=== PATIENT | male | born 1940 | race Caucasian/White ===

== ENCOUNTER → 2017-07-10 09:15 | Outpatient (CLI) | payer MEDICARE, SELFPAY ==
[2017-07-10 09:52] LABS: Hematocrit 48.9 % (40-54); Hemoglobin 16.2 g/dl (13.0-16.5); Mean Corp Hgb Conc 33.1 g/gl (32-36); Mean Corpuscular Volume 93.5 fL (80-94); Mean Platelet Vol. 9.6 fl (6.2-12.0); Platelet Count 247 K/mm3 (150-450); RBC Distribution Width CV 13.2 % (11.6-14.6); RBC Distribution Width SD 45.1 fl (35.1-43.9); Red Blood Count 5.23 M/mm3 (4.6-6.2); White Blood Count 4.8 K/mm3 (4.4-11.0)
[2017-07-10 09:54] LABS: Scan Indicated on CBC? Y/N NO
[2017-07-10 10:16] LABS: Anion Gap 9 (5-15); BUN 25 mg/dL (7-18); BUN/Creat Ratio 26.5 RATIO (10-20); Calcium,Total 9.1 mg/dL (8.5-10.1); Chloride 106 mmol/L (98-107); Creatinine, Serum 0.94 mg/dL (0.70-1.30); EST Glomerular Filtration Rate 83 mL/min (>60); Est Glom Filt Rate - Afr Amer 100 mL/min (>60); Glucose 65 mg/dL (74-106); Potassium 4.5 mmol/L (3.5-5.1); Sodium Level 143 mmol/L (136-145)
== END ==
PROVIDERS: Family Provider Family Medicine; PCP Family Medicine; Visit Provider Orthopaedic Surgery
DX: Z01.818 Encounter for other preprocedural examination (principal)
CPT/HCPCS: 36415; 80048; 85027; 93005

== ENCOUNTER 2019-12-02 08:30 | Outpatient (RCR) | payer MEDICARE, SELFPAY ==
--- NOTE | 2019-11-09 08:00 | HP.PTEVAL ---
Patient's Visit Information ROME DYSON is a 79 year old M referred to Physical Therapy by Dr. Aditya Carmichael MD with a diagnosis of cervical DDD, gait imbalance. Date of Evaluation: 11/09/19 Physical Therapist: Aditya Mueller, SRINIT, OCS, CSCS - Visit Plan Frequency: 2x /Week Duration: 4 Weeks Plan: Pt to have neurocom with EG and will need treated with instruction in appropriate balance(likely vest) exercises after that time. Until then, 2x/week for 4 weeks to start for MH and STM to neck focussing R UT, work to stretching pericervical muscles, ROM to neck strength posture adn necka dn progress to HEP.Activitiy modification - Subjective Doc says I have a balance problem due to back and neck. Chronic arthritic neck and back problems. Haad cortisone injections in neck years ago. Neck pain is worse in evenings to 7/10. Not bad in morning. Gets catch in it in am and 3/10, constant. LBP for years in mid back. Not many other treatments, uses OTC meds adn chiropractic which helps. Balance is effectd as he is unsteady. Did not realize he was unsteady until had his physical. No falls. Walks through [place] regularly. No neuropathy. No dizzyness. No cane or walker needed. Activities are normal at home. Spends day mowing, cutting wood, taking care of coes and works garden and takes care of 3 yo great grandosn. Basic ADLs are getting done. No symptoms from [place], went away after 10 years. - Pain neck Pain Intensity (Out of 10): 3 Pain Intensity Range: 3, 7 - Objective Walks hunched over with FW head btu safe and I. Ocuomotor is unremarkable without nystagmus and no problems with gaze pursuit, saccades. VOR walking tolerable and no symptoms or LOB. cervical aROM R rotation 15 adn L 30, SB are nil, ext is dev R and 12 degrees, smoe pain end range all motions. Slight. Tender to touch R UT and into c/s paraspinals. reflex 1/3 patella adn achilles and bi and tri. sensation WNL to gross light touch UE and LE. Strength LE 4+/5 hips , knees and ankles, UE 4/5 L UE and R UE 2 Ext rotation, 4- IR, 3- flexiona nd abduction. AROM ext rotaion -15 from neutral and elevation about 90 vs 125 on L. H/O RC problems adn failed surgery on R but has become functional. coordination to toe taps and heel taps LE WFL. Heel rasies well without UE. Steps reciprocal with one rail. Gastroc and HS moderately tight. - Balance Scores Functional Gait Assessment Score: 25 % Disability: 16.6700 CATSIB Score (Max score 120 seconds): 100 - Goals Goal 1:: 45 degrees B cervical rotation and 25 ext t o limit problems in neck and see behind tractor easier. Goal Time Frame: 4-6 Weeks Goal 2:: Pt neck feel 50% ruy rin evening to 3/10 at worst Goal Time Frame: 4-6 Weeks Goal 3:: I approp balance and neck ex to limit future problems Goal Time Frame: 4-6 Weeks - Rehabilitation Potential Physical Therapy Diagnosis: imbalance and neck OA Rehabilitation Potential: Fair - Anticipated Interventions Patient/Client Instruction: Educate patient on: Condition, Plan of Care For the Purpose of:: To decrease pain, To increase ROM, To improve muscle performance and motor function, To increase tolerance to activity/condition/position, To improve ability of physical actions for home/community/work/leisure Therapeutic Exercise to Include: Strength training, Balance training, Postural training, Flexibilty training, Passive ROM, Active ROM For the Purpose of:: To decrease pain, To increase ROM, To improve nutrient delivery to tissue, To improve muscle performance and motor function, To increase tolerance to activity/condition/position, To improve balance Manual Therapy Techniques to Include: Mobilization, Passive ROM, Soft tissue mobilization For the Purpose of:: To decrease pain, To increase ROM Thermo therapy (hot pack): Yes For the Purpose of:: To decrease pain, To increase ROM, To improve muscle performance and motor function, To increase tolerance to activity/condition/position Thank you for the opportunity to evaluate your patient. For Medicare and Medicare HMO plans, please review the plan of care and approve it. It will need to be FAXED BACK to us at [phone] for Medicare purposes. For Medicare only, by signing this I certify the plan of care. Please let me know if there are questions or concerns regarding this plan of care. Physician Signature: Date:
--- NOTE | 2019-11-16 09:43 | HP.PTCOM ---
PT Communication Note 11/16/[address] Aditya Carmichael MD , [facility] I have enclosed a copy of the results for your review. In summation, he scored low on the vestibular portion of the Sensory Organization Test. He scored poorly on forward weight shifting. With these results in mind, I plan to continue his original plan of care adding balance ex to address these deficits. if there are questions regarding his PT, please feel free to call me. Sincerely, Aditya Mueller DPT, OCS, CSCS Contact Information
--- NOTE | 2019-12-02 09:51 | HP.PTDCSUM ---
It has been my pleasure to treat ROME DYSON referred by Dr. Aditya Carmichael MD, with the diagnosis of cervical DDD, gait imbalance for a total of 8 visit(s). Discharge Date: 12/02/19 Please see the following information for a summary of their discharge status. Subjective: Getting better. Not s fatigued in evening. standing up straighter adn neck doesn't hurt as much. R neck hurts 4/10 much of day. No falls. Has been walking in [place]. Doing exercises for neck at home all day long. Wants to continue via HEP vs more therapy. Can put tractor in reverse adn look behind him now. neck Pain Intensity (Out of 10): 4 thoracic region Pain Intensity (Out of 10): 3 % Improvement: 70 Objective/Function: L 40 rotation adn 38 R ,rotation, a little pain. 25 extension. FGA is +1. Going the right way with his progress. wants to cotninue at home adn should be able to at this point. Goal 1:: 45 degrees B cervical rotation and 25 ext t o limit problems in neck and see behind tractor easier. Goal Progress: Progressing Goal 2:: Pt neck feel 50% ruy rin evening to 3/10 at worst Goal Progress: Progressing Goal 3:: I approp balance and neck ex to limit future problems Goal Progress: neck Plan: d/c to HEP If there are questions or concerns regarding this patient's physical therapy, please feel free to call me at [phone]. Thank you for the referral of this patient. Sincerely, Aditya Mueller, DPT, OCS, CSCS
== END 2019-12-02 19:00 | disposition home or self-care (01) ==
LOC: PT 08:30
PROVIDERS: PCP Family Medicine; Referring Provider Family Medicine; Visit Provider Family Medicine
DX: M50.30 Other cervical disc degeneration, unspecified cervical region (principal); H81.09 Meniere's disease, unspecified ear; R29.3 Abnormal posture; R26.89 Other abnormalities of gait and mobility
CPT/HCPCS: 97110; 97140; 97163; 97164; 97750

== ENCOUNTER → 2020-03-31 15:02 | Outpatient (CLI) | payer MEDICARE, SELFPAY ==
[2016-11-09 16:23] VITALS: BMI 22.4
[2020-03-31 16:55] LABS: Pathologist Comment/Body Fluid May follow
[2020-03-31 19:29] LABS: Appearance/Body Fluid CLOUDY; Auto B Fluid Analyzer BKGD Ct COUNTS W/IN LIMITS (W/IN LIMITS); Color/Body Fluid YELLOW; Source- Body Fluid OTHER
[2020-03-31 19:30] LABS: Red Cell Count/Body Fluid 0.008 10^6/ul
[2020-03-31 19:32] LABS: Body Fluid Mononuclear WBC # 2.034 10^3/uL
[2020-03-31 21:08] LABS: CRYSTALS, BODY FLUID See PATH REV; Lymphocytes 1 %; Monocytes 1 %; Neutrophil (Segs) 98 %; Source- Body Fluid SYNOVIAL
[2020-03-31 21:09] LABS: Body Fluid QC Type(s) BF1Q,BF2Q
[2020-04-01 12:27] LABS: Pathologist Review Reviewed
== END ==
PROVIDERS: PCP Family Medicine; Visit Provider Physician Assistant Surgical
DX: M70.41 Prepatellar bursitis, right knee (principal)
CPT/HCPCS: 87070; 87075; 87077; 87186; 87205; 89050; 89060

== ENCOUNTER 2020-05-31 12:36 | Outpatient (RCR) | payer MEDICARE, SELFPAY ==
[2016-11-09 16:23] VITALS: BMI 22.4
[2020-05-31] MEDS: COVID-19 VACC, MRNA(PFIZER)/PF 30 MCG/0.3 ML SYRINGE IM (17:34)
[2020-06-21] MEDS: COVID-19 VACC, MRNA(PFIZER)/PF 30 MCG/0.3 ML SYRINGE IM (17:13)
== END 2020-08-30 23:59 ==
LOC: IMMUN 12:36
PROVIDERS: PCP Family Medicine; Visit Provider Family Medicine
DX: Z23 Encounter for immunization (principal)
CPT/HCPCS: 0001A; 0002A; 91300

== ENCOUNTER 2021-12-22 11:39 | Emergency (ER) | payer MEDICARE, SELFPAY ==
[2021-12-22] VITALS (10 sets, daily range): BP systolic 98–140; BP diastolic 56–83; PULSE 61–106; RESP 15–19; TEMP 35.6–37.1; O2SAT 97–100; BMI 23.9
--- NOTE | 2021-12-22 11:51 | EKG12_ITS ---
Test Reason : Blood Pressure : / mmHG Vent. Rate : 049 BPM Atrial Rate : 249 BPM P-R Int : 000 ms QRS Dur : 094 ms QT Int : 442 ms P-R-T Axes : 266 -58 009 degrees QTc Int : 399 ms Atrial flutter with variable A-V block Pulmonary disease pattern Left anterior fascicular block Abnormal ECG Confirmed by ED BAPTISTE, TON ([id number]), writer editor ROBIN HARP ([id number]) on 12/25/2021 10:16:15 AM Referred By: MELISA Confirmed By:TON WARD MD
--- NOTE | 2021-12-22 13:16 | CT_ITS ---
STUDY: CT BRAIN WITHOUT CONTRAST REASON FOR EXAM: Male, 81 years old. Syncope RADIATION DOSAGE (If Supplied By Facility): CTDIvol = ( 44.99 ) mGy, DLP = ( 931.09 ) mGycm TECHNIQUE: Transaxial CT imaging of the brain was performed without administration of intravenous contrast material. Individualized dose optimization techniques were used for this CT. COMPARISON: No relevant priors. FINDINGS: Normal soft tissue structures. Normal calvarium. There is mild cerebral atrophy with widening of the extra-axial spaces and ventricular dilatation. There are areas of decreased attenuation within the white matter tracts of the supratentorial brain, consistent with microvascular disease changes. Normal basal ganglia and thalami. Normal brainstem. Normal cerebellum. There is no intracranial hemorrhage. There are no findings of an acute ischemic infarction. Atherosclerotic calcification of the cavernous portions of the internal carotid arteries bilaterally. Mucosal thickening and partial opacification of the ethmoid sinuses. Mucosal thickening of the frontal sinuses. CT/Brain/Head without Contrast IMPRESSION: Chronic involutional changes of the brain. Mucosal thickening and partial opacification of the ethmoid sinuses and mucosal thickening of the frontal sinuses. Electronically Signed: Juan Carlos Hooper MD at 13:52 EDT ,
--- NOTE | 2021-12-22 13:17 | EKG12_ITS ---
Test Reason : REPEAT Blood Pressure : / mmHG Vent. Rate : 065 BPM Atrial Rate : 258 BPM P-R Int : 000 ms QRS Dur : 104 ms QT Int : 436 ms P-R-T Axes : 080 -47 058 degrees QTc Int : 453 ms Atrial flutter with variable A-V block Left anterior fascicular block Abnormal ECG Confirmed by ED BAPTISTE, TON ([id number]), photograph editor ROBIN HARP ([id number]) on 12/25/2021 10:14:18 AM Referred By: DIVINA Confirmed By:TON WARD MD
--- NOTE | 2021-12-22 13:17 | RAD_ITS ---
STUDY: X-RAY CHEST REASON FOR EXAM: Male, 81 years old. Syncope . Weakness and dizziness. Diaphoresis. TECHNIQUE: PA and lateral views of the chest. COMPARISON: None. FINDINGS: EKG electrodes are seen. Hyperinflation. The lungs are clear. There is no demonstrated pleural abnormality. Normal size heart. Normal mediastinum and gary. Normal visualized pulmonary arteries. Normal visualized aortic arch and descending thoracic aorta. There are diffuse degenerative changes of the visualized thoracic spine. Normal visualized ribs, clavicles, and shoulders. There is no demonstrated abnormality of the visualized soft tissue structures of the upper abdomen. RAD/Chest PA and Lateral IMPRESSION: Hyperinflation. The lungs are clear. Electronically Signed: Juan Carlos Hooper MD at 14:01 EDT ,
[2021-12-22 13:31] LABS: Absolute Lymphocyte Count 3.06 X10^3/uL (0.83-4.51); Absolute Neutrophil Count 4.1 X10^3/uL (2.0-7.7); Basophil# 0.03 X10^3/uL; Basophil% 0.4 % (0-1); Eosinophil# 0.62 X10^3/uL; Eosinophils% 7.2 % (0-5); Hematocrit 48.6 % (40-54); Hemoglobin 16.2 g/dL (13.0-16.5); Lymphocyte # 3.06 X10^3/ul (0.83-4.51); Lymphocyte % 35.7 % (19-41); Mean Corp Hgb Conc 33.3 g/dL (32-36); Mean Corpuscular Hgb 32.3 pg (27.0-32.0); Mean Platelet Vol. 10.1 fl (6.2-12.0); Monocyte# 0.76 X10^3/uL; Monocyte% 8.9 % (0-10); NRBC Flagged by Analyzer 0 % (0-5); Neutrophil # 4.06 X10^3/uL (2.7-7.7); Neutrophil % 47.3 % (47-70); Platelet Count 261 K/mm3 (150-450); RBC Distribution Width CV 12.4 % (11.6-14.6); RBC Distribution Width SD 44.4 fl (35.1-43.9); Red Blood Count 5.01 M/mm3 (4.6-6.2); White Blood Count 8.6 K/mm3 (4.4-11.0)
[2021-12-22 13:45] LABS: ALB/GLOB Ratio 1.1 RATIO (0.9-2.4); AST(SGOT) 23 U/L (15-37); Alanine Aminotransfer ALT/SGPT 30 U/L (16-61); Albumin, Serum 3.9 g/dL (3.2-5.0); Alkaline Phosphatase 89 U/L (45-117); Anion Gap 9 (5-15); BUN 22 mg/dL (7-18); BUN/Creat Ratio 22.3 RATIO (10-20); Calcium,Total 9.2 mg/dL (8.5-10.1); Chloride 104 mmol/L (98-107); Creatinine, Serum 0.98 mg/dL (0.70-1.30); EST Glomerular Filtration Rate 78 mL/min (>60); Est Glom Filt Rate - Afr Amer 94 mL/min (>60); Estimated Creatinine Clearance 73.05 ml/min; Globulin 3.7 g/dL (2.2-4.2); Glucose 84 mg/dL (74-106); Potassium 3.5 mmol/L (3.5-5.1); Protein, Total 7.6 g/dL (6.4-8.2); Sodium Level 141 mmol/L (136-145); Troponin-I HS (w/2H Reflex) 7 pg/mL (3.0-78.0)
[2021-12-22 13:53] LABS: Prothrombin Time (Protime)PT. 13.1 SECONDS (11.7-14.9)
[2021-12-22 13:54] LABS: Partial Thromboplast Time 26.1 Seconds (24.1-36.2)
[2021-12-22 15:22] LABS: Reflex Troponin-HS? (from REC) Y
[2021-12-22 16:04] LABS: Troponin-I HS 6 pg/mL (3.0-78.0)
--- NOTE | 2021-12-22 16:34 | EX.ED.DYSGE1 ---
HPI History of Present Illness Chief Complaint: Syncope Onset/Context/Timing Onset: Today Context: Sudden Onset Timing: Intermittent and Lasts (5 minutes) Quality: Dizziness Location: Generalized Worsened by: Nothing Relieved by: Nothing Narrative Narrative: Patient presents with a syncopal episode that occurred today. Patient states he was at a store with his family when he started to feel dizzy. Patient states he started to walk out of the store to go get in the car. Patient states he passed out prior to this happening. Patient states that it was a brief loss of consciousness. Patient states that afterwards he was a little dizzy and confused. Patient states this lasted approximately 5 minutes total. Patient states nothing makes it better nothing makes it worse. Patient states he did get nauseated at the time. Patient states he did get diaphoretic at the time. Patient denies any fevers or chills. [facility] Medical History (Updated 12/22/21 @ 17:[address] Aditya Mcdaniels DO) M?ni?re's disease Medical History no medical history Home Medications epinephrine 0.3 mg/0.3 mL injection, auto-injector 0.3 mg (0.3 mL) IM X1 ##2 11/09/16 [Rx Last Taken Unknown] multivitamin 1 tab PO DAILY 12/22/21 [History Last Taken Unknown] vitamin A-vitamin C-vit E-min tablet 1 tab PO DAILY 12/22/21 [History Last Taken Unknown] Allergy/AdvReac Type Severity Reaction Status Date / Time gabapentin Allergy SORES IN Verified 12/22/21 11:56 MY MOUTH Surgical History (Updated 12/22/21 @ 16:[address] Aditya Mcdaniels DO) Hx of shoulder replacement Social History Smoking Status: Never smoker ROS ROS ED Constitutional Constitutional ED: Reports sweats; Denies chills or fever(s) Eyes Eyes: Denies blurry vision or change in vision ENT ENT ED: Denies rhinorrhea or sore throat Cardiovascular Cardiovascular: Denies chest pain or palpitations Respiratory/Chest Respiratory/Chest: Denies cough or dyspnea Gastrointestinal Gastrointestinal: Reports nausea; Denies vomiting Genitourinary Genitourinary ED: Denies dysuria or hematuria Musculoskeletal Musculoskeletal: Reports back pain and neck pain Integumentary Denies abscess or rash Neurologic Neurologic: Denies headache(s) or weakness Allergic/Immunologic Allergic/Immunologic ED: Denies mouth swelling or urticaria EXAM Physical Exam Const Vital Signs: 12/22/21 11:41 12/22/21 11:49 12/22/21 11:56 Temperature 96.0 F L 96.0 F L Temperature Source Oral Oral Pulse Rate 62 62 Pulse Rate [Lying] Pulse Rate [Sitting (for 1 minute prior to obtaining)] Pulse Rate [Standing (for 1 minute prior to obtaining)] Respiratory Rate 17 17 Respiratory Effort Normal Non-Labored Respiratory Pattern Normal Blood Pressure 118/73 118/73 Blood Pressure [Lying] Blood Pressure [Sitting (for 1 minute prior to obtaining)] Blood Pressure [Standing (for 1 minute prior to obtaining)] Blood Pressure Mean 88 88 Blood Pressure Mean [Lying] Blood Pressure Mean [Sitting (for 1 minute prior to obtaining)] Blood Pressure Mean [Standing (for 1 minute prior to obtaining)] Pulse Ox 100 100 Oxygen Delivery Method Room Air Room Air 12/22/21 12:04 12/22/21 13:30 12/22/21 14:00 Temperature 97.6 F L 97.8 F Temperature Source Oral Temporal Pulse Rate 61 72 74 Pulse Rate [Lying] Pulse Rate [Sitting (for 1 minute prior to obtaining)] Pulse Rate [Standing (for 1 minute prior to obtaining)] Respiratory Rate 19 H 18 15 Respiratory Effort Respiratory Pattern Blood Pressure 126/72 H 127/79 H 122/82 H Blood Pressure [Lying] Blood Pressure [Sitting (for 1 minute prior to obtaining)] Blood Pressure [Standing (for 1 minute prior to obtaining)] Blood Pressure Mean 90 95 95 Blood Pressure Mean [Lying] Blood Pressure Mean [Sitting (for 1 minute prior to obtaining)] Blood Pressure Mean [Standing (for 1 minute prior to obtaining)] Pulse Ox 100 97 100 Oxygen Delivery Method Room Air Room Air Room Air 12/22/21 15:29 12/22/21 15:38 Temperature 97.8 F Temperature Source Temporal Pulse Rate 79 Pulse Rate [Lying] 81 Pulse Rate [Sitting (for 1 minute prior to obtaining)] 81 Pulse Rate [Standing (for 1 minute prior to obtaining)] 106 H Respiratory Rate 17 Respiratory Effort Respiratory Pattern Blood Pressure 98/61 Blood Pressure [Lying] 115/61 Blood Pressure [Sitting (for 1 minute prior to obtaining)] 105/56 L Blood Pressure [Standing (for 1 minute prior to obtaining)] 105/74 Blood Pressure Mean 73 Blood Pressure Mean [Lying] 79 Blood Pressure Mean [Sitting (for 1 minute prior to obtaining)] 72 Blood Pressure Mean [Standing (for 1 minute prior to obtaining)] 84 Pulse Ox 98 Oxygen Delivery Method Room Air Positive well nourished and well developed General Appearance ED: well developed HEENT Reports moist mucous membranes Neck supple and no JVD Resp normal respiratory effort and clear to auscultation bilaterally Cardio regular rate, regular rhythm and no murmurs GI normal to inspection, nondistended, normoactive bowel sounds and non-tender Palpation: soft Extremity normal to inspection General Extremety ED: Negative for edema or tenderness General Extremity: Negative for edema Neuro oriented x3, CN's II-XII intact bilaterally and no sensory deficits noted Sensorium / Orientation: alert Motor Exam: strength 5/5 throughout Psych mental status grossly normal Skin no rashes or lesions noted MDM MDM MDM Narrative Medical decision making narrative: Patient was given IV fluids. Orthostatic vital signs were obtained. Patient's heart rate did increase with standing. EKG was obtained. On my interpretation, it shows atrial flutter with a rate of 49. QRS interval and QTc intervals are within normal limits. There is left axis deviation at -58. Compared to previous EKG, the atrial flutter is not new. CBC was within normal limits. Comprehensive metabolic profile was within normal limits. With INR and PTT were within normal limits. Initial high-sensitivity troponin was normal. 2-hour repeat high-sensitivity troponin was normal. CT scan of the brain was obtained. There is no acute intracranial abnormality. There is mucosal thickening of the ethmoid and frontal sinuses. This was interpreted by the radiologist and reviewed by myself. PA and lateral chest x-ray was obtained. There are 2 views. On my interpretation, lung hardin are clear. There is normal cardiac silhouette. Bony thorax is normal. There is no acute process noted. Radiologist also interpreted the x-ray and agrees. Patient is feeling better on reevaluation. Patient was advised of his findings. Patient was instructed to follow-up with his primary care physician in 5 to 7 days. Patient understood and was agreeable with the plan. All questions were answered. Lab Data Attestation: I reviewed the patient's lab results. Labs: Laboratory Results - last 24 hr 12/22/21 12/22/21 12/22/21 11:20 11:20 11:20 WBC 8.6 RBC 5.01 Hgb 16.2 Hct 48.6 MCV 97.0 H MCH 32.3 H MCHC 33.3 RDW Std Deviation 44.4 H RDW Coeff of Brigitte 12.4 Plt Count 261 MPV 10.1 Immature Gran % (Auto) 0.500 Neut % (Auto) 47.3 Lymph % (Auto) 35.7 Simpson % (Auto) 8.9 Eos % (Auto) 7.2 H Baso % (Auto) 0.4 Absolute Neuts (auto) 4.1 Absolute Lymphs (auto) 3.06 Nucleated RBC % 0 PT 13.1 INR 1.0 APTT 26.1 Sodium 141 Potassium 3.5 Chloride 104 Carbon Dioxide 28.0 Anion Gap 9 BUN 22 H Creatinine 0.98 Estim Creat Clear Calc 73.05 Est GFR (MDRD) Af Amer 94 Est GFR (MDRD) Non-Af 78 BUN/Creatinine Ratio 22.3 H Glucose 84 Calcium 9.2 Total Bilirubin 1.30 H AST 23 ALT 30 Alkaline Phosphatase 89 Troponin I High Sens 7 Total Protein 7.6 Albumin 3.9 Globulin 3.7 Albumin/Globulin Ratio 1.1 12/22/21 15:34 WBC RBC Hgb Hct MCV MCH MCHC RDW Std Deviation RDW Coeff of Brigitte Plt Count MPV Immature Gran % (Auto) Neut % (Auto) Lymph % (Auto) Simpson % (Auto) Eos % (Auto) Baso % (Auto) Absolute Neuts (auto) Absolute Lymphs (auto) Nucleated RBC % PT INR APTT Sodium Potassium Chloride Carbon Dioxide Anion Gap BUN Creatinine Estim Creat Clear Calc Est GFR (MDRD) Af Amer Est GFR (MDRD) Non-Af BUN/Creatinine Ratio Glucose Calcium Total Bilirubin AST ALT Alkaline Phosphatase Troponin I High Sens 6 Total Protein Albumin Globulin Albumin/Globulin Ratio Radiography Chest X-Ray - ED: 2 View, Read by ED Physician, Read by Radiologist and No Acute Disease Diagnostic Testing: Clinical Impression(s) from Imaging Studies Brain CT 12/22/21 13:16 IMPRESSION: Chronic involutional changes of the brain. Mucosal thickening and partial opacification of the ethmoid sinuses and mucosal thickening of the frontal sinuses. Electronically Signed: Juan Carlos Hooper MD at 13:52 EDT , Chest X-Ray 12/22/21 13:17 IMPRESSION: Hyperinflation. The lungs are clear. Electronically Signed: Juan Carlos Hooper MD at 14:01 EDT , EKG Initial EKG: Attestation: I personally reviewed and interpreted this EKG as follows: Interpretation: Atrial Flutter (49) and LAFB Prior EKG tracings: available for review Prior: Unchanged (07/10/2017) Discharge Plan Triage Chief Complaint: Syncope Other Complaint: Palpitations ED Provider: Aditya Mcdaniels Dx/Rx/DC Orders Clinical Impression: Syncope and collapse, Atrial flutter Instructions: ED Fainting, Uncertain Cause Prescriptions: No Action epinephrine 0.3 MG syringe 0.3 mg IM X1 Qty: 2 0RF multivitamin Tablet 1 tab PO DAILY Ocuvite Tablet 1 tab PO DAILY Primary Care Provider: Aditya Carmichael Referrals: Aditya Carmichael MD [Primary Care Provider] - 5-7 Days Disposition Disposition: Home, Self Care
--- NOTE | 2021-12-22 17:32 | ED.RN ---
THIS RN WENT TO DC PT. PT WAS NOTED TO STILL BE IN AFIB ON MONITOR. THIS RN CONFIRMED WITH PT THAT AFIB/AFLUTTER WAS A NEW DX. PT STATED YES. THIS RN EDUCATED PT ON FOLLOWING UP WITH CARDIOLOGY A NEW PATIENT AND IF SYMPTOMS PERSIST OR INCREASING SYNCOPAL EPISODES THEN TO RETURN TO ED. PT STATES THAT ORIGINAL ED PHYSICIAN DID NOT MENTION AFIB/FLUTTER OR AV BLOCK DX TO PT OR PT FAMILY AND TO JUST FOLLOW UP WITH YOUR FAMILY THIS NURSE REQUESTED THAT AN ATTENDING PHYSICIAN EDUCATE PT AND PT FAMILY ON NEW DX.
--- NOTE | 2021-12-22 18:31 | PN.HOSP_ITS ---
Subjective Subjective 81-year-old male with no significant past medical history presented to the hospital with an episode of syncope. Work-up in the ER was unremarkable however he was found to have slow a flutter. There was concern that this was new however upon chart review it looks like he had slow a flutter back in 2018. He was unaware of this had and had never seen a doctor or windows consultant for this. Given his age being 81 he did meet criteria for anticoagulation. He denies any chest pain or lightheadedness, and states that he feels fine now. Of note he did have a 10 point drop in his systolic blood pressure between laying and standing and he had a 25 point increase in his heart rate with the orthostatic vital signs. His does endorse the fact that he is likely dehydrated as he does not drink water very well and especially today he did not have good hydration. Objective Data Objective Data Vital Signs: Vital Signs Temp Pulse Resp BP Pulse Ox O2 Del Method 97.9 F 76 19 H 140/83 H 100 Room Air 12/22/21 17:00 12/22/21 17:00 12/22/21 17:00 12/22/21 17:00 12/22/21 17:00 12/22/21 17:00 Oxygen Delivery Method Room Air Weight: 191 lb 5.78 oz Body Mass Index (BMI) 23.9 Lab / Micro Data Result Diagrams: 12/22/21 11:20 12/22/21 11:20 Labs: Laboratory Results - last 24 hr 12/22/21 11:20: WBC 8.6, RBC 5.01, Hgb 16.2, Hct 48.6, MCV 97.0 H, MCH 32.3 H, MCHC 33.3, RDW Std Deviation 44.4 H, RDW Coeff of Brigitte 12.4, Plt Count 261, MPV 10.1, Immature Gran % (Auto) 0.500, Neut % (Auto) 47.3, Lymph % (Auto) 35.7, Sampson % (Auto) 8.9, Eos % (Auto) 7.2 H, Baso % (Auto) 0.4, Absolute Neuts (auto) 4.1, Absolute Lymphs (auto) 3.06, Nucleated RBC % 0 12/22/21 11:20: PT 13.1, INR 1.0, APTT 26.1 12/22/21 11:20: Sodium 141, Potassium 3.5, Chloride 104, Carbon Dioxide 28.0, Anion Gap 9, BUN 22 H, Creatinine 0.98, Estim Creat Clear Calc 73.05, Est GFR (MDRD) Af Amer 94, Est GFR (MDRD) Non-Af 78, BUN/Creatinine Ratio 22.3 H, Glucose 84, Calcium 9.2, Total Bilirubin 1.30 H, AST 23, ALT 30, Alkaline Ph osphatase 89, Troponin I High Sens 7, Total Protein 7.6, Albumin 3.9, Globulin 3.7, Albumin/Globulin Ratio 1.1 12/22/21 15:34: Troponin I High Sens 6 Radiography Diagnostic Testing: Radiology Impression Brain CT 12/22/21 13:16 IMPRESSION: Chronic involutional changes of the brain. Mucosal thickening and partial opacification of the ethmoid sinuses and mucosal thickening of the frontal sinuses. Electronically Signed: Juan Carlos Hooper MD at 13:52 EDT , Chest X-Ray 12/22/21 13:17 IMPRESSION: Hyperinflation. The lungs are clear. Electronically Signed: Juan Carlos Hooper MD at 14:01 EDT , Physical Exam Narrative General: Alert, Oriented x3, Cooperative, No apparent distress HEENT: Atraumatic, PERRLA, EOMI, Normocephalic Oral: Moist Mucosa Neck: Supple, No JVD Lungs: Clear to auscultation, Normal air movement, No rhonchi, No wheeze, No rales Cardiovascular: Regular rate, Regular Rhythm, Normal S1, Normal S2, No murmurs Abdomen: Soft, Non Tender, Non-Distended, No Hepato-splenomegaly Extremities: No edema, Capillary Refill Less than 3 Seconds Skin: No rashes, No breakdown Musculoskeletal: No Tenderness to Palpation of Joints or Extremities Neurological: Cranial nerves II-XII grossly intact, Motor Exam 5/5 strength throughout, Sensory exam intact to light touch and pain Psych/Mental Status: Normal Affect, Appropriate Assessment & Plan Assessment/Plan (1) Atrial flutter: (2) Syncope and collapse: PLAN: Plan 1. A flutter with syncope ? His a flutter is not new and it does not appear to have changed, he does have a slow conduction with a left anterior fascicular block ? He is not amenable to any direct intervention as he is already rate controlled ? I do recommend anticoagulation given his age ? Would also recommend an outpatient Holter monitor and then follow-up with cardiology on an outpatient basis ? I did discuss this with him and his family members who are at bedside, we discussed the risk and benefits of staying versus being discharged home, and he would prefer to go home today. Charges/Coding Visit Charges Office Visits / Consults: 65612 ED Visit; Low/Mod Severity
== END 2021-12-22 19:25 | disposition home or self-care (01) ==
PROVIDERS: Emergency Provider Emergency Medicine; PCP Family Medicine; Visit Provider Emergency Medicine
DX: I48.92 Unspecified atrial flutter (principal); R55 Syncope and collapse
CPT/HCPCS: 70450; 71046; 80053; 84484; 85025; 85610; 85730; 93005; 99285; J7040; A4216

== ENCOUNTER → 2022-01-04 | Outpatient (CLI) | payer MEDICARE, SELFPAY ==
--- NOTE | 2022-01-04 09:01 | ECHOD_ITS ---
Reason For Study: Afib/Flutter Procedure This was a 2D Doppler, Color Flow transthoracic echocardiogram. Exam performed in department. Left Ventricle Normal LV size. Left ventricular systolic function is normal. The estimated ejection fraction is 53 %. No regional wall motion abnormalities noted. Right Ventricle Normal RV size. Normal systolic function. Atria Normal left atrium. Normal right atrium. Mitral Valve Normal mitral valve. Mild (1+) eccentric mitral valve insufficiency. Tricuspid Valve Normal tricuspid valve. Mild tricuspid valve insufficiency. Pulmonary artery systolic pressure is 20 mmHg. Aortic Valve Trisinus/trileaflet aortic valve. Mild diffuse aortic valve thickening. Pulmonic Valve Normal pulmonic valve. Great Vessels Mildly dilated aortic root. The pulmonary artery is normal size. Normal inferior vena cava. Pericardium/Pleural No pericardial effusion. MMode/2D Measurements & Calculations LVIDd: 4.7 cm IVSd: 1.2 cm Ao root diam: 4.1 cm LVIDs: 3.0 cm LVPWd: 0.92 cm LA dimension: 4.3 cm RVDd: 3.5 cm FS: 35.2 % LAV(MOD-bp): 49.2 ml Aortic Valve Planimetry: 2.1 cm2 LA A4 area: 19.8 cm2 LAV(MOD-bp) Indexed: 23.4 ml/m2 LAV(MOD-sp2): 44.1 ml LAV(MOD-sp4): 52.2 ml RA A4 area: 20.6 cm2 Doppler Measurements & Calculations MV E max marissa: 81.2 cm/sec LV V1 max: 62.5 cm/sec PA V2 max: 77.1 cm/sec LV V1 max P.6 mmHg PA V2 mean: 52.8 cm/sec TR max marissa: 199.2 cm/sec TR max P.0 mmHg ECHO/Echo Complete Interpretation Summary Normal LV size. Left ventricular systolic function is normal. The estimated ejection fraction is 53 %. Mildly dilated aortic root. Structurally normal valves. Ordering Physician: Eladio Hcikman Referring Physician: Aditya Carmichael Performed By: Paul Camara RCS
== END | disposition home or self-care (01) ==
LOC: CVS 08:59
PROVIDERS: PCP Family Medicine; Referring Provider Internal Medicine Cardiovascular Disease; Visit Provider Internal Medicine Cardiovascular Disease
DX: R55 Syncope and collapse (principal); I48.92 Unspecified atrial flutter
CPT/HCPCS: 93225; 93226; 93306

== ENCOUNTER → 2022-04-20 | Outpatient (CLI) | payer MEDICARE, SELFPAY ==
--- NOTE | 2022-04-20 18:49 | STRESSREP_ITS ---
Stress Test Report Pharmacologic myocardial perfusion stress test. 81-year-old man with a history of chest pain and atrial fibrillation. Resting EKG demonstrates atrial flutter with a variable response rate of 91 bpm. Resting blood pressure is 120/80 mmHg. 0.4 mg of regadenoson was infused per usual protocol followed by rapid intravenous saline flush injection. Continuous EKG monitoring was performed. The maximum heart rate was 115 bpm which was 81% of max impacted heart rate the maximum workload was 1 metabolic equivalent. At rest there were no ST or T wave changes noted to suggest ischemia and at peak infusion nonspecific ST changes were noted which did not meet the criteria for ischemia. No clinical angina is noted. The final blood pressure was 118/70 mmHg. Myocardial perfusion protocol. 12.0 mCi of technetium 99m sestamibi was injected at rest. 0.4 mg of regadenoson was infused per usual protocol. At peak infusion 39.3 mCi of techn etium 99m sestamibi was injected stress images were obtained stress and rest images were reconstructed and compared in the short axis vertical long and horizontal long axis. Gated images were also obtained. Perfusion SPECT analysis: Review of the stress images demonstrate normal uptake of tracer noted in all areas of the myocardium. The resting images similar demonstrated normal uptake of tracer noted in all areas of the myocardium. No areas of reversibility are noted to suggest ischemia and no previous infarct is noted. Gated SPECT analysis: The gated ejection fraction is 54%. Conclusion: Normal pharmacologic myocardial perfusion stress test. Preserved ejection fraction.
== END | disposition home or self-care (01) ==
LOC: CVS 06:58
PROVIDERS: PCP Family Medicine; Visit Provider Internal Medicine Cardiovascular Disease
DX: R07.9 Chest pain, unspecified (principal)
CPT/HCPCS: 78452; 93017; A9500; A4216; J2785

== ENCOUNTER → 2023-01-01 | Outpatient (CLI) | payer MEDICARE, SELFPAY ==
--- NOTE | 2023-01-01 13:34 | RAD_ITS ---
STUDY: X-RAY - LEFT HAND REASON FOR EXAM: Male, 82 years old. Pain. TECHNIQUE: 3 views of the left hand. COMPARISON: None. FINDINGS: There is radiocarpal arthrosis with joint space narrowing. Normal distal radioulnar joint. Normal visualized carpal bones. Normal carpal articulations. Normal carpometacarpal articulation of the thumb. Normal second through fifth carpometacarpal joints. Normal metacarpi. Normal proximal and distal phalanges of the thumb. There is mild degenerative arthrosis of the first MCP joint as well as second through fifth PIP and DIP joints. There is moderate degenerative arthrosis of the interphalangeal joint of the thumb. Normal metacarpophalangeal joints of the second through fifth fingers. Normal phalanges of the second through fifth fingers. There is no demonstrated acute fracture. The soft tissue structures are unremarkable. RAD/Hand Min 3 Views IMPRESSION: Degenerative arthrosis, as detailed above. No demonstrated acute fracture. Electronically Signed: Gino Carcamo MD at 13:50 EDT ,
--- NOTE | 2023-01-01 13:35 | RAD_ITS ---
STUDY: X-RAY - LEFT WRIST REASON FOR EXAM: Male, 82 years old. Pain. TECHNIQUE: 3 views of the left wrist were obtained. COMPARISON: None. FINDINGS: Normal visualized distal radius and ulna. There is radiocarpal arthrosis with joint space narrowing. Normal distal radioulnar articulation. Intact carpal bones. Normal carpal articulations. Normal carpometacarpal articulation of the thumb. Normal second through fifth carpometacarpal articulations. Normal visualized metacarpal bones. The soft tissue structures are unremarkable. There is no demonstrated acute fracture. RAD/Wrist min 3 Views IMPRESSION: Radiocarpal arthrosis. No demonstrated acute fracture. Electronically Signed: Gino Carcamo MD at 13:48 EDT ,
== END | disposition home or self-care (01) ==
LOC: MTRAD 13:34
PROVIDERS: PCP Family Medicine; Referring Provider Physician Assistant; Visit Provider Physician Assistant
DX: M25.532 Pain in left wrist (principal); M79.642 Pain in left hand
CPT/HCPCS: 73110; 73130

== ENCOUNTER → 2023-02-19 | Outpatient (CLI) | payer MEDICARE, SELFPAY ==
--- NOTE | 2023-02-19 08:07 | ECHOD_ITS ---
Reason For Study: ATRIAL FIB Procedure This was a 2D Doppler, Color Flow transthoracic echocardiogram. Exam performed in department. Left Ventricle Normal LV size. Left ventricular systolic function is normal. The estimated ejection fraction is 65 %. No regional wall motion abnormalities noted. Right Ventricle Normal RV size. Normal systolic function. Atria Normal left atrium. Normal right atrium. Mitral Valve Equivocal mitral valve prolapse. Mild (1+) mitral valve insufficiency. Tricuspid Valve Normal tricuspid valve. Aortic Valve Trisinus/trileaflet aortic valve. Mild focal aortic valve calcification. Peak aortic valve gradient 11 mmHg. Mean aortic valve gradient 5 mmHg. Pulmonic Valve Normal pulmonic valve. Great Vessels Normal aortic root. The pulmonary artery is normal size. Normal inferior vena cava. Pericardium/Pleural No pericardial effusion. MMode/2D Measurements & Calculations LVIDd: 4.2 cm IVSd: 1.1 cm LVOT diam: 2.0 cm LVIDs: 2.2 cm LVPWd: 1.4 cm LVOT area: 3.2 cm2 FS: 47.4 % Ao root diam: 3.9 cm LAV(MOD-bp): 62.4 ml LVAd ap4: 30.3 cm2 LAV(MOD-bp) Indexed: 29.8 ml/m2 LVLd ap4: 7.8 cm LAV(MOD-sp2): 81.0 ml EDV(MOD-sp4): 99.0 ml LAV(MOD-sp4): 45.7 ml EDV(sp4-el): 100.3 ml LVAs ap4: 16.3 cm2 LVLs ap4: 6.6 cm ESV(MOD-sp4): 35.5 ml ESV(sp4-el): 34.4 ml EF(MOD-sp4): 64.2 % EF(sp4-el): 65.7 % SV(MOD-sp4): 63.6 ml SV(sp4-el): 65.9 ml LA A4 area: 17.2 cm2 LA dimension(2D): 3.7 cm RA A4 area: 21.3 cm2 TAPSE: 2.1 cm Time Measurements MV dec time: 0.41 sec Doppler Measurements & Calculations MV E max lasha: 58.8 cm/sec Lat Peak E' Lasha: 10.0 cm/sec Med Peak E' Lasha: 5.5 cm/sec MV A max lasha: 53.9 cm/sec E/E' lat: 5.9 E/E' med: 10.7 MV E/A: 1.1 MV V2 max: 81.7 cm/sec Ao V2 max: 165.4 cm/sec MV max P.7 mmHg MV dec slope: 154.5 cm/sec2 Ao max P.0 mmHg MV V2 mean: 51.1 cm/sec Ao V2 mean: 107.4 cm/sec MV mean P.2 mmHg Ao mean P.5 mmHg MV V2 VTI: 36.1 cm Ao V2 VTI: 39.4 cm AV (velocity ratio): 0.58 MVA(VTI): 2.0 cm2 PATO(I,D): 1.8 cm2 PATO(V,D): 1.7 cm2 LV V1 max: 88.6 cm/sec SV(LVOT): 72.9 ml PA V2 max: 103.7 cm/sec LV V1 max P.1 mmHg PA V2 mean: 69.2 cm/sec LV V1 mean P.9 mmHg LV V1 mean: 64.8 cm/sec LV V1 VTI: 22.9 cm ECHO/Echo Complete Interpretation Summary Normal LV size. Left ventricular systolic function is normal. The estimated ejection fraction is 65 %. Equivocal mitral valve prolapse. Mild (1+) mitral valve insufficiency. Ordering Physician: Promise Blanco Referring Physician: Promise Blanco Performed By: Norma Keyes RCS
== END | disposition home or self-care (01) ==
LOC: CVS 08:06
PROVIDERS: PCP Family Medicine; Referring Provider Nurse Practitioner Gerontology; Visit Provider Nurse Practitioner Gerontology
DX: I48.0 Paroxysmal atrial fibrillation (principal); I77.810 Thoracic aortic ectasia
CPT/HCPCS: 93306

== ENCOUNTER → 2023-05-03 | Outpatient (CLI) | payer MEDICARE, SELFPAY ==
--- NOTE | 2023-05-03 09:50 | RAD_ITS ---
STUDY: X-RAY CHEST REASON FOR EXAM: Male, 82 years old. Cough. TECHNIQUE: Frontal and lateral views of the chest on 4 images. COMPARISON: 12/22/2021 FINDINGS: Hyperinflation and hyperlucency with scattered healed granulomatous calcifications, unchanged. There is no demonstrated pleural abnormality. Stable cardiomegaly. Normal mediastinum and gary. Prominent central pulmonary arteries unchanged. Mild aortic tortuosity unchanged. Stable thoracic osteopenia with moderate spondylosis. Normal visualized ribs, clavicles, and shoulders. No abnormality of the visualized soft tissue structures of the upper abdomen. RAD/Chest PA and Lateral IMPRESSION: Stable cardiomegaly with hyperinflation and no acute or active cardiopulmonary disease. Electronically Signed: Tobias Hopkins MD at 10:30 EST ,
[2023-05-03 12:20] LABS: Absolute Lymphocyte Count 1.42 X10^3/uL (0.83-4.51); Absolute Neutrophil Count 2.4 X10^3/uL (2.0-7.7); Basophil# 0.02 X10^3/uL; Basophil% 0.4 % (0-1); Eosinophil# 0.32 X10^3/uL; Hematocrit 44.2 % (40-54); Hemoglobin 14.3 g/dL (13.0-16.5); Lymphocyte # 1.42 X10^3/ul (0.83-4.51); Mean Corp Hgb Conc 32.4 g/dL (32-36); Mean Corpuscular Hgb 31.3 pg (27.0-32.0); Mean Corpuscular Volume 96.7 fL (80-94); Mean Platelet Vol. 9.9 fl (6.2-12.0); Monocyte# 0.44 X10^3/uL; Monocyte% 9.6 % (0-10); NRBC Flagged by Analyzer 0 % (0-5); Neutrophil # 2.36 X10^3/uL (2.7-7.7); Neutrophil % 51.6 % (47-70); Platelet Count 224 K/mm3 (150-450); RBC Distribution Width CV 12.9 % (11.6-14.6); RBC Distribution Width SD 45.9 fl (35.1-43.9); Red Blood Count 4.57 M/mm3 (4.6-6.2); White Blood Count 4.6 K/mm3 (4.4-11.0)
[2023-05-03 13:06] LABS: AST(SGOT) 18 U/L (15-37); Alanine Aminotransfer ALT/SGPT 32 U/L (16-61); Albumin, Serum 3.7 g/dL (3.2-5.0); Alkaline Phosphatase 76 U/L (45-117); Anion Gap 6 (5-15); BUN 18 mg/dL (7-18); BUN/Creat Ratio 20.1 RATIO (10-20); Calcium,Total 9.2 mg/dL (8.5-10.1); Chloride 107 mmol/L (98-107); Cholesterol 196 mg/dL (200); EST Glomerular Filtration Rate 87 mL/min (>60); Est Glom Filt Rate - Afr Amer 105 mL/min (>60); Ferritin 527 ng/mL (26-388); Globulin 3.6 g/dL (2.2-4.2); Glucose 82 mg/dL (74-106); High Density Lipoprotein 64 mg/dL; Magnesium 2.3 mg/dL (1.6-2.6); PSA,Total - Annual Screen 1.59 ng/mL (0.00-4.00); Potassium 3.7 mmol/L (3.5-5.1); Protein, Total 7.3 g/dL (6.4-8.2); Sodium Level 142 mmol/L (136-145); Triglycerides 82 mg/dL; Very Low Density Lipoprotein 16 mg/dL (5-40)
== END | disposition home or self-care (01) ==
LOC: MTLAB 09:43
PROVIDERS: PCP Family Medicine; Referring Provider Family Medicine; Visit Provider Family Medicine
DX: R05.9 Cough, unspecified (principal); I77.9 Disorder of arteries and arterioles, unspecified; I48.0 Paroxysmal atrial fibrillation; Z12.5 Encounter for screening for malignant neoplasm of prostate; Z79.01 Long term (current) use of anticoagulants
CPT/HCPCS: 36415; 71046; 80053; 80061; 82728; 83735; 84153; 85025; G0103

== ENCOUNTER → 2023-05-16 | Outpatient (CLI) | payer MEDICARE, SELFPAY ==
--- NOTE | 2023-05-16 07:53 | RAD_ITS ---
PROCEDURE: Air contrast Upper GI with Small Bowel Follow Through DATE OF EXAMINATION: May 16, 2023. INDICATION: Male, 82 years old. Swallowing difficulty and epigastric pain. FLUOROSCOPY TIME (if supplied): (1:56) minutes/seconds. 26 images were obtained. TECHNIQUE: Radiographic and fluoroscopic images of the distal esophagus, stomach, and entire small intestine were obtained following the oral ingestion of barium. COMPARISON: None. FINDINGS: The ticket taker film of the abdomen demonstrates a normal bowel gas pattern. There are no abnormal calcifications or organomegaly demonstrated. The visualized osseous structures are normal. The esophagus is unremarkable. No evidence of obstruction. There is evidence of gastroesophageal reflux. The remainder of the stomach and duodenum is unremarkable. A single contrast small bowel follow through exam demonstrates the small bowel to have no evidence for stricture, ulceration or mass. The transit time is normal at 30 minutes. RAD/Upper GI/w Small Bowel IMPRESSION: Gastroesophageal reflux. Electronically Signed: Juan Carlos Hooper MD at 10:38 EST ,
--- OUTSIDE RECORDS SUMMARY | 2023-05-16 08:15 | XMS RPT_ITS | CCD ---
Author Name Unknown Address [address] [place] [address] Organization [facility] Results Test Name Value Interpretation Reference Range Facil ity Summary Purpose Family History No Family History Records Found Advance Directives No Advanced Directives Records Found Additional Source Comments (unrecognized sect ion and content) No Status Records Found INFORMATION SOURCE (unrecogn ized section and content) FOR RECORDS PERTAINING TO PATIENTS WHO ARE OR HAVE BEEN ENROLLED IN A CHEMICAL DEPENDENCY/SUBSTANCEABUSE PROGRAM, SOME INFORMATION MAY BE OMITTED. This clinical summary was aggregated from multiple sources. Caution should be exercised in using it in the provision of clinical care. This summary normalizes information from multiple sources, and as a consequence, information in this document may materially change the coding, format and clinical context of patient data. In addition, data may be omitted in some cases. CLINICAL DECISIONS SHOULD BE BASED ON THE PRIMARY CLINICAL RECORDS. [employer] provides no warranty or guarantee of the accuracy or completeness of information in this document.
== END | disposition home or self-care (01) ==
LOC: RAD 07:53
PROVIDERS: PCP Family Medicine; Visit Provider Family Medicine
DX: R13.10 Dysphagia, unspecified (principal)
CPT/HCPCS: 74246; 74248

== ENCOUNTER → 2023-11-04 | Outpatient (CLI) | payer MEDICARE, SELFPAY ==
[2023-11-04 11:49] LABS: Absolute Lymphocyte Count 1.28 X10^3/uL (0.83-4.51); Absolute Neutrophil Count 2.2 X10^3/uL (2.0-7.7); Basophil# 0.02 X10^3/uL; Basophil% 0.5 % (0-1); Eosinophil# 0.34 X10^3/uL; Eosinophils% 8.1 % (0-5); Hemoglobin 15.2 g/dL (13.0-16.5); Lymphocyte # 1.28 X10^3/ul (0.83-4.51); Lymphocyte % 30.5 % (19-41); Mean Corpuscular Hgb 31.6 pg (27.0-32.0); Mean Corpuscular Volume 95.6 fL (80-94); Mean Platelet Vol. 10.3 fl (6.2-12.0); Monocyte# 0.37 X10^3/uL; Monocyte% 8.8 % (0-10); NRBC Flagged by Analyzer 0 % (0-5); Neutrophil # 2.17 X10^3/uL (2.7-7.7); Neutrophil % 51.9 % (47-70); Platelet Count 209 K/mm3 (150-450); RBC Distribution Width CV 12.3 % (11.6-14.6); RBC Distribution Width SD 43.6 fl (35.1-43.9); Red Blood Count 4.81 M/mm3 (4.6-6.2); White Blood Count 4.2 K/mm3 (4.4-11.0)
[2023-11-04 12:05] LABS: Vitamin B12 442 pg/mL (211-911)
[2023-11-04 13:35] LABS: ALB/GLOB Ratio 1.1 RATIO (0.9-2.4); AST(SGOT) 22 U/L (15-37); Alanine Aminotransfer ALT/SGPT 27 U/L (16-61); Albumin, Serum 3.8 g/dL (3.2-5.0); Alkaline Phosphatase 80 U/L (45-117); Anion Gap 4 (5-15); BUN 20 mg/dL (7-18); BUN/Creat Ratio 22.4 RATIO (10-20); Calcium,Total 9.1 mg/dL (8.5-10.1); Chloride 107 mmol/L (98-107); Creatinine, Serum 0.89 mg/dL (0.70-1.30); EST Glomerular Filtration Rate 87 mL/min (>60); Est Glom Filt Rate - Afr Amer 105 mL/min (>60); Ferritin 437 ng/mL (26-388); Globulin 3.5 g/dL (2.2-4.2); Glucose 72 mg/dL (74-106); Magnesium 2.2 mg/dL (1.6-2.6); Potassium 3.8 mmol/L (3.5-5.1); Protein, Total 7.3 g/dL (6.4-8.2); Sodium Level 139 mmol/L (136-145); Thyroid Stim Hormone (TSH) 5.53 uIU/mL (0.358-3.74)
[2023-11-05 13:08] LABS: Lyme Scn Total Ab w/Rflx Negative (Negative); PROEL- A/G Ratio 1.5 (0.7-1.7); PROEL- Albumin 4.1 g/dL (2.9-4.4); PROEL- Alpha-1 Globulin 0.2 g/dL (0.0-0.4); PROEL- Alpha-2 Globulin 0.6 g/dL (0.4-1.0); PROEL- Beta Globulin 0.9 g/dL (0.7-1.3); PROEL- Gamma Globulin 1.1 g/dL (0.4-1.8); PROEL- Globulin, Total 2.8 g/dL (2.2-3.9); PROEL- TOTAL PROTEIN 6.9 g/dL (6.0-8.5); PROEL-M-Spike Not Observed g/dL (Not Observed)
[2023-11-07 09:55] LABS: Iron 84 ug/dL (65-175); Iron Binding Capacity,Total 283 ug/dL (250-450); PERCENT IRON SATURATION 29.7 % (15.0-55.0)
== END | disposition home or self-care (01) ==
LOC: MTLAB 09:39
PROVIDERS: PCP Family Medicine; Referring Provider Family Medicine; Visit Provider Family Medicine
DX: R79.89 Other specified abnormal findings of blood chemistry (principal); I48.0 Paroxysmal atrial fibrillation; R20.2 Paresthesia of skin; R53.83 Other fatigue
CPT/HCPCS: 36415; 80053; 82607; 82728; 82746; 83540; 83550; 83735; 84165; 84443; 85025; 86618

== ENCOUNTER → 2023-11-12 | Outpatient (CLI) | payer MEDICARE, SELFPAY ==
--- NOTE | 2023-11-12 09:25 | US_ITS ---
STUDY: ABDOMINAL ULTRASOUND - RIGHT UPPER QUADRANT REASON FOR VISIT: Male, 83 years old Elevated Ferritin/ abnormal liver test TECHNIQUE: Ultrasound evaluation of the right upper quadrant was performed with real-time and static cotton-scale imaging. TECHNICAL QUALITY: Adequate. COMPARISON: None. FINDINGS: Liver: The liver measures 15.7 cm. There is normal echogenicity of the liver. The bile ducts are within normal limits. There is hepatic color flow. The direction of portal flow is hepatopetal. There is no demonstrated mass lesion. Gallbladder: Normal distended gallbladder. The gallbladder wall measures 2 mm. There is a negative sonographic Augustin''s sign. There is no pericholecystic fluid. There are no gallstones. Common Bile Duct (C.B.D.): The common bile duct measures 4 mm. Pancreas: Normal size of the head, body and tail of the pancreas. There is normal echogenicity of the pancreas. There is no demonstrated pancreatic mass or cyst. Right Kidney: Normal size of the right kidney. The right kidney measures 10.9 cm. Normal renal cortex. The right cortex measures 1.0 cm. 1 cm cyst in the upper pole right kidney. 0.8 cm cyst lower pole right kidney. There is no right hydronephrosis. US/Abdomen Limited IMPRESSION: Normal right upper quadrant ultrasound examination. Electronically Signed: Ivan Acharya MD at 13:12 EDT ,
== END | disposition home or self-care (01) ==
LOC: US 09:24
PROVIDERS: PCP Family Medicine; Referring Provider Family Medicine; Visit Provider Family Medicine
DX: R79.89 Other specified abnormal findings of blood chemistry (principal)
CPT/HCPCS: 76705

== ENCOUNTER → 2024-05-26 | Outpatient (CLI) | payer MEDICARE, SELFPAY ==
[2024-05-26 12:30] LABS: Absolute Lymphocyte Count 1.43 X10^3/uL (0.83-4.51); Absolute Neutrophil Count 3.7 X10^3/uL (2.0-7.7); Basophil# 0.03 X10^3/uL; Basophil% 0.5 % (0-1); Eosinophil# 0.43 X10^3/uL; Erythrocyte Sedimentation Rate 3 mm/hr (0-20); Hematocrit 45.5 % (40-54); Hemoglobin 15.5 g/dL (13.0-16.5); Lymphocyte # 1.43 X10^3/ul (0.83-4.51); Lymphocyte % 23.4 % (19-41); Mean Corp Hgb Conc 34.1 g/dL (32-36); Mean Corpuscular Hgb 32.2 pg (27.0-32.0); Mean Corpuscular Volume 94.6 fL (80-94); Mean Platelet Vol. 9.6 fl (6.2-12.0); Monocyte# 0.49 X10^3/uL; NRBC Flagged by Analyzer 0 % (0-5); Neutrophil # 3.69 X10^3/uL (2.7-7.7); Neutrophil % 60.6 % (47-70); Platelet Count 240 K/mm3 (150-450); RBC Distribution Width CV 12.4 % (11.6-14.6); RBC Distribution Width SD 43.4 fl (35.1-43.9); Red Blood Count 4.81 M/mm3 (4.6-6.2); White Blood Count 6.1 K/mm3 (4.4-11.0)
[2024-05-26 13:21] LABS: PTHIN 40 pg/mL (11-61)
[2024-05-26 14:32] LABS: ALB/GLOB Ratio 1.4 RATIO (0.9-2.4); AST(SGOT) 25 U/L (<=37); Alanine Aminotransfer ALT/SGPT 23 U/L (<=46); Albumin, Serum 4.4 g/dL (3.4-4.8); Alkaline Phosphatase 85 U/L (40-129); Anion Gap 12 (5-15); BUN 32 mg/dL (4-19); Calcium,Total 9.5 mg/dL (7.6-11.0); Carbon Dioxide 24.4 mmol/L (21.0-32.0); Chloride 104 mmol/L (98-108); Creatinine, Serum 1.04 mg/dL (0.70-1.20); EST Glomerular Filtration Rate 72 (>60); Globulin 3.1 g/dL (2.2-4.2); Glucose 75 mg/dL (70-99); Potassium 4.1 mmol/L (3.3-5.1); Protein, Total 7.4 g/dL (5.9-8.4); Sodium Level 140 mmol/L (133-145); Total Bilirubin 0.76 mg/dL (0.00-1.30)
[2024-05-26 15:54] LABS: CRP < 3.00 mg/L (0.0-3.0)
[2024-05-27 17:08] LABS: PROEL- A/G Ratio 1.2 (0.7-1.7); PROEL- Albumin 3.7 g/dL (2.9-4.4); PROEL- Alpha-1 Globulin 0.2 g/dL (0.0-0.4); PROEL- Alpha-2 Globulin 0.6 g/dL (0.4-1.0); PROEL- Gamma Globulin 1.2 g/dL (0.4-1.8); PROEL- Globulin, Total 3.1 g/dL (2.2-3.9); PROEL- TOTAL PROTEIN 6.8 g/dL (6.0-8.5); PROEL-M-Spike Not Observed g/dL (Not Observed)
== END | disposition home or self-care (01) ==
LOC: MTLAB 09:12
PROVIDERS: PCP Family Medicine; Referring Provider Family Medicine; Visit Provider Family Medicine
DX: R53.83 Other fatigue (principal)
CPT/HCPCS: 36415; 80053; 83970; 84165; 84439; 84443; 85025; 85652; 86140

== ENCOUNTER → 2024-09-30 | Outpatient (CLI) | payer MEDICARE, SELFPAY ==
--- NOTE | 2024-09-30 09:44 | RAD_ITS ---
EXAM: XR Chest, 2 Views CLINICAL INDICATION: WHEEZING TECHNIQUE: Frontal and lateral views of the chest. COMPARISON: No relevant prior studies available. FINDINGS: LUNGS AND PLEURAL SPACES: Unremarkable. No consolidation. No pneumothorax. HEART: Unremarkable. No cardiomegaly. MEDIASTINUM: Unremarkable. Normal mediastinal contour. BONES/JOINTS: Unremarkable. No acute fracture. RAD/Chest PA and Lateral IMPRESSION: No acute cardiopulmonary process. Reading Location: [facility]
--- NOTE | 2024-09-30 09:44 | RAD_ITS ---
PROCEDURE: NECK FOR SOFT TISSUE 09/30/2024 REASON FOR EXAM: WHEEZING Questionable aspiration. TECHNIQUE: NECK FOR SOFT TISSUE COMPARISON: None FINDINGS: Bones: Patient is status post anterior fusion at the C3-C4 and C4-C5 levels with prosthetic disc placement. Soft tissues: No radiopaque foreign body is seen. Other: RAD/Neck for Soft Tissue IMPRESSION: No radiopaque foreign body is seen. Reading Location: [facility]--[facility]
== END | disposition home or self-care (01) ==
LOC: MTRAD 09:44
PROVIDERS: PCP Family Medicine; Referring Provider Physician Assistant; Visit Provider Physician Assistant
DX: R06.2 Wheezing (principal)
CPT/HCPCS: 70360; 71046